=== PATIENT | female | born 1990 | race Caucasian/White ===

== ENCOUNTER 2020-09-08 09:55 | Emergency (ER) | payer MEDICAID ==
[2020-09-08] MEDS ORDERED: SINGULAIR PO (10:32)
[2020-09-08] MEDS ORDERED: ZYRTEC10 M3 PO (10:33)
[2020-09-08] MEDS ORDERED: EPIPEN 2-PAK1 MG/ML MR (11:40)
[2020-09-08 11:48] VITALS: BP 179/87
== END 2020-09-08 11:48 | disposition home or self-care (01) ==
LOC: ED 09:55
DX: T78.3XXA Angioneurotic edema, initial encounter (principal); X58.XXXA Exposure to other specified factors, initial encounter
CPT/HCPCS: J7512

== ENCOUNTER 2021-10-16 01:29 | Emergency (ER) | payer MEDICAID ==
[~2021-10-16 01:29] MED LIST: EPIPEN 2-PAK1 MG/ML MR; SINGULAIR PO; ZYRTEC10 M3 PO
[2021-10-16] MEDS ORDERED: ZESTRIL10 M1 PO (01:39)
[2021-10-16] MEDS ORDERED: BREO ELLIPTA 21 EACH (01:40)
[2021-10-16] MEDS ORDERED: PANTOPRAZOLE SO40 MG PO (01:40)
[2021-10-16] MEDS ORDERED: KEPPRA 500MG500 MG PO (01:41)
[2021-10-16 02:11] VITALS: BP 127/76
== END 2021-10-16 02:22 | disposition home or self-care (01) ==
LOC: ED 01:29
DX: U07.1 COVID-19 (principal)